=== PATIENT | female | born 1995 | race Caucasian/White ===

== ENCOUNTER 2024-05-03 12:45 | Emergency (ER) | payer OTHER, SELFPAY ==
[2024-05-03 13:00] VITALS: BP 129/88; PULSE 108; RESP 16; TEMP 36.6; O2SAT 100
--- NOTE | 2024-05-03 13:13 | ED.GENADULT ---
HPI - General Adult General Chief complaint: Unspecified Stated complaint: Rectal Bleeding/pain History of Present Illness HPI narrative: 28 year old female here with complaints of rectal bleeding possible hemorrhoid. Patient states she had that issue about a month ago but things got better and over the last week every time she has a bowel movement she notices blood on the stool and on the toilet paper. She denies any lightheaded dizziness or chest pain. She does have history of having hemorrhoids in the past. States that her BMs are firm but does not consider them hard. States she does not strain for bowel movements. Also with some tailbone pain but denies any injury. Related Data Home Medications ?Medication ?Instructions ?Recorded ?Confirmed ?Last Taken ?Type isotretinoin 40 mg capsule 40 mg PO DAILY 05/03/24 05/03/24 Unknown History (Absorica) Allergies Allergy/AdvReac Type Severity Reaction Status Date / Time trimethoprim Allergy Mild Swelling Verified 05/03/24 12:58 of Lip/Tongue/Throat sulfamethoxazole Allergy Unknown Swelling Verified 05/03/24 12:58 of Lip/Tongue/Throat Review of Systems Review of Systems: All systems reviewed & are unremarkable except as noted in HPI and below Eyes: Eyes: Reports as per HPI ENT: Reports as per HPI Cardiovascular: Cardiovascular: Reports as per HPI Respiratory: Respiratory: Reports as per HPI Genitourinary: Genitourinary: Reports as per HPI Musculoskeletal: Musculoskeletal: Reports as per HPI Integumentary/Breasts: Skin/Breast: Reports as per HPI Neurologic: Reports as per HPI Psychiatric: Psychiatric: Reports as per HPI Endocrine: Endocrine: Reports as per HPI Hematologic/Lymphatic: Hematologic/Lymphatic: Reports as per HPI Allergic/Immunologic: Allergic/Immunologic: Reports as per HPI Exam Const: General: cooperative, healthy appearing, comfortable, no acute distress and well developed Orientation/consciousness: patient oriented x3 HENMT: Head: normal to inspection Eyes: General: appearance normal, both eyes and all related structures Resp: Effort & Inspection: normal respiratory effort and able to speak in complete sentences GI: Rectal Exam: External hemorrhoid(s) present ( Small external hemorrhoid noted patient declined internal exam ) Skin: General skin exam: normal color Neuro: General: patient oriented x3 Cognition (Neuro): normal cognition Speech: normal speech Psych: Mental Status: mental status grossly normal Course Course Level of Care: Express Care Visit Vital Signs Vital signs: Vital Signs Temperature 98 F 03/08/25 13:00 Pulse Rate 108 H 05/03/24 13:00 Respiratory Rate 16 05/03/24 13:00 Blood Pressure 129/88 05/03/24 13:00 Pulse Oximetry 100 05/03/24 13:00 Temperature 98 F 05/03/24 13:00 Pulse Rate 108 H 05/03/24 13:00 Respiratory Rate 16 05/03/24 13:00 Blood Pressure 129/88 05/03/24 13:00 Pulse Oximetry 100 05/03/24 13:00 Medical Decision Making MDM Narrative Medical decision making narrative: 28-year-old female HPI as noted. Differentials include external or internal hemorrhoid, colitis, Crohn's, rectal bleeding. Patient without any abdominal pain or diarrhea low suspicion for colitis or Crohn's. Patient does have a history of hemorrhoids. Small external hemorrhoid noted about 2:00 a.m.. No bleeding noted at this time. Will treat for hemorrhoids and patient is to follow-up with primary care provider if there is no resolution of rectal bleeding. To ER with sob, dizziness lightheadedness or urgent concerns. Vital Signs Vital Signs: Vital Signs Temperature 98 F 05/03/24 13:00 Pulse Rate 108 H 05/03/24 13:00 Respiratory Rate 16 05/03/24 13:00 Blood Pressure 129/88 05/03/24 13:00 Pulse Oximetry 100 05/03/24 13:00 Temperature 98 F 05/03/24 13:00 Pulse Rate 108 H 05/03/24 13:00 Respiratory Rate 16 05/03/24 13:00 Blood Pressure 129/88 05/03/24 13:00 Pulse Oximetry 100 05/03/24 13:00 Discharge Plan Discharge Clinical Impression: External hemorrhoid Patient Disposition: Home, Self-Care Condition: Stable Instructions: Antibiotic Form, Hemorrhoids (DC) Additional Instructions: Use suppositories as prescribed. If rectal bleeding continues follow up with primary for further evaluation. push fluids goal is no straining and having soft bowel movements. Patient Language: [place] Prescriptions: New hydrocortisone acetate 25 mg suppository 25 mg RECTAL HS 7 Days Qty: 12 0RF No Action isotretinoin [Absorica] 40 mg capsule 40 mg PO DAILY Follow-up/Referrals: PHYSICIAN,MEDICAL OFFICE COORDINATOR [Primary Care Provider] - Time of Disposition: 13:20
== END 2024-05-03 13:23 | disposition home or self-care (01) ==
PROVIDERS: Emergency Provider Nurse Practitioner Family
DX: K64.4 Residual hemorrhoidal skin tags (principal)
CPT/HCPCS: 99203; G0463